=== PATIENT | female | born 1985 | race Caucasian/White ===

== ENCOUNTER 2020-06-08 14:51 | Emergency (ER) | payer OTHER, SELFPAY ==
[2020-06-08 16:05] VITALS: BP 121/66; PULSE 59; RESP 20; TEMP 36.7; BMI 24.3
--- NOTE | 2020-06-08 17:39 | ED.SKABFB ---
HPI - Skin/Abscess/Foreign Bdy General Chief complaint: Skin/Abscess/Foreign Body Stated complaint: NOSE PAIN Time Seen by Provider: 06/08/20 17:18 Source: patient Mode of arrival: ambulatory History of Present Illness HPI narrative: 34-year-old female with no significant past medical history presenting to ED complaining of bump in right nostril with right-sided facial discomfort/swelling times a few days. Admits tried squeezing area at home which made it worse. Denies ear pain, throat pain or swelling, fever, chills, dental pain/procedure Related Data Previous Rx's Medication Instructions Recorded acetaminophen [Tylenol Extra 500 mg PO Q6H PRN #20 tab 06/08/20 Strength] cephalexin [Keflex] 500 mg PO Q6H 7 Days #28 cap 06/08/20 sulfamethoxazole-trimethoprim 1 tab PO BID 7 Days #14 tab 06/08/20 [Bactrim DS] Allergies Allergy/AdvReac Type Severity Reaction Status Date / Time No Known Allergies Allergy Verified 06/08/20 17:16 Review of Systems Review of Systems: Constitutional: No Weight loss, No Fever, No Chills ENT/Mouth: No Ear Pain, No Sinus Pain, No Hoarseness, No sore throat, No Swallowing Difficulty, +nasal pain Cardiovascular: No SOB Skin: + Skin Lesions, No rash Yes all other systems are reviewed and are negative [facility] Past Medical History Attestation statement: The following information was validated with the patient. Medical History (Updated 06/08/20 @ 17:39 by EVELIO Hutson) Anemia Cholecystitis Surgical History (Updated 06/08/20 @ 16:07 by Hira Morrison) H/O gastric bypass Social History Social History Smoking Status: Never smoker Use of substances other than those prescribed or required for medical reasons: Yes Substance Use Type: Marijuana Advance Directives: No Advance Directives Information Provided: No Physical Exam Vital Signs: Vital Signs: Last Vital Signs Temp 98.1 F 06/08/20 16:05 Pulse 59 06/08/20 16:05 Resp 20 06/08/20 16:05 BP 121/66 06/08/20 16:05 Body Mass Index 24.3 Const: General: cooperative and healthy appearing Orientation/consciousness: patient oriented x3 Limitations: no limitations HENMT: Other: +small hard cyst in right Nare with mild surrounding R facial swelling. No surrounding cellulitis. No fluctuance. No pointing No gingival or dental involvement Head: Yes normal to inspection Ears: hearing grossly normal bilaterally and TM's normal bilaterally Mouth: Normal oral and palatal mucosa present, lip normal, tongue normal and no drooling Teeth and gingiva: dentition normal Throat: Yes posterior oropharynx normal and Yes uvula midline Eyes: General: appearance normal, both eyes and all related structures EOM: EOMs intact bilaterally Neck: Neck: Yes normal visual inspection, Yes full ROM and Yes no lymphadenopathy Resp: Effort & Inspection: normal respiratory effort Neuro: General: patient oriented x3 Gait exam (Neuro): Normal gait present Extrem: General: Yes normal to inspection MDM - Skin/Abscess/Foreign Bdy MDM Narrative Medical decision making narrative: On exam VSS, NAD/well-appearing, concern for early abscess in Nare vs cyst vs follicle infection No appreciable abscess at this time that would require I&D Discharge Plan Discharge Clinical Impression: Cyst Patient Disposition: Home, Self-Care Instructions: Cyst (ED) Additional Instructions: You have an early abscess/ingrown hair,/or cyst to your nose Bactrim and Keflex are antibiotics, take as prescribed Apply ice to surrounding facial swelling, however apply heat directly to area Take Tylenol and Motrin around the clock at home for pain/swelling Follow up with her doctor, he should be re-evaluated in 2 days, area begins to grow, you have fever, or turns red return to the ED Prescriptions: New cephalexin [Keflex] 500 mg capsule 500 mg PO Q6H 7 Days Qty: 28 RF: 0 sulfamethoxazole-trimethoprim [Bactrim DS] 800-160 mg tablet 1 tab PO BID 7 Days Qty: 14 RF: 0 acetaminophen [Tylenol Extra Strength] 500 mg tablet 500 mg PO Q6H PRN (Reason: pain or fever) Qty: 20 RF: 0 Referrals: Physician,None [Primary Care Provider] - 2 days (Your doctor)
[2020-06-08] MEDS: cephALEXin 500 MG CAPSULE PO (18:12)
[2020-06-08] MEDS: Ketorolac Tromethamine 15 MG/ML VIAL IM (18:12)
== END 2020-06-08 19:03 | disposition home or self-care (01) ==
PROVIDERS: Emergency Provider Emergency Medicine
DX: J34.1 Cyst and mucocele of nose and nasal sinus (principal)
CPT/HCPCS: 96372; 99284; J1885

== ENCOUNTER 2021-12-29 09:55 | Emergency (ER) | payer OTHER, SELFPAY ==
[2021-12-29 10:30] VITALS: BP 99/65; PULSE 54; RESP 16; TEMP 36.7; O2SAT 99; BMI 21.2
--- NOTE | 2021-12-29 11:57 | ED.SKABFB ---
HPI - Skin/Abscess/Foreign Bdy General Chief complaint: Skin/Abscess/Foreign Body Stated complaint: bumps on hands Time Seen by Provider: 12/29/21 11:41 Source: patient Mode of arrival: ambulatory Limitations: no limitations History of Present Illness complaint: rash Onset (ago): day(s) Location: L hand, R hand, L foot and R foot Severity: moderate Quality: constant and pruritic Pain Consistency: constant Relieving factors: none Exacerbating factors: none Context: none Associated symptoms: denies other symptoms Treatments prior to arrival: none Related Data Previous Rx's Medication Instructions Recorded clotrimazole 1 % topical ointment 1 appl TOPICAL BID #56.7 g 12/29/21 permethrin 5 % topical cream 1 appl TOPICAL Q14D 3 Days #60 g 12/29/21 Allergies Allergy/AdvReac Type Severity Reaction Status Date / Time No Known Allergies Allergy Verified 11/23/20 15:48 Review of Systems Review of Systems: Constitutional : No Fever, No Chills , no body aches, no recent illness Head/Face: No facial swelling, No facial redness ENT/Mouth : No oral/throat swelling, No Hoarseness, No Swallowing Difficulty Eyes: No Eye Pain, No Swelling, No Redness Cardiovascular : No Chest Pain, No SOB, No palpitations Respiratory : No Cough, No Sputum, No Wheezing, No Smoke Exposure, No Dyspnea Gastrointestinal : No Nausea, No Vomiting, No Diarrhea, No abdominal Pain Genitourinary : No Dysuria, No Urinary Frequency, No Hematuria Musculoskeletal : No joint pain, No Myalgias, No Joint Swelling Skin : No Skin Lesions, positive rash Neuro : No Weakness, No Numbness, No Headache, No dizziness, No tingling Psych : No Anxiety/Panic, No Depression Heme/Lymph: No Bruising, No Lymphadenopathy Endocrine : No Polyuria, No Polydipsia Denies changes in lotions or detergents. Denies new medications or any changes in medications. Denies drainage from rash. Denies any recent sick contacts or recent travel. Yes all other systems are reviewed and are negative PMFSH Past Medical History Attestation statement: The following information was validated with the patient. Medical History Anemia Cholecystitis Transaminitis Surgical History H/O gastric bypass Hx of cholecystectomy Family History Family History Father No problems noted. Mother No problems noted. Social History Social History Alcohol intake: current Alcohol intake frequency: holidays/special occasions only Alcohol type: beer, wine and hard liquor Substance Use Type: Marijuana Advance Directives: No Advance Directives Information Provided: No Physical Exam Vital Signs: Vital Signs: Last Vital Signs Temp 98.1 F 12/29/21 10:30 Pulse 54 12/29/21 10:30 Resp 16 12/29/21 10:30 BP 99/65 12/29/21 10:30 Pulse Ox 99 12/29/21 10:30 BMI result Body Mass Index 21.2 vital signs have been reviewed as normal and appeared to be correct. Blood pressure normal Heart rate normal. Respiration rate normal. Temperature normal. Oxygen saturation normal. Appearance: Alert. Oriented X3. No acute distress. Head: Normal external exam. Normocephalic. Atraumatic. Eyes: PERRLA. EOMI. Conjunctiva and sclera normal. Eyelids normal. ENT: Pharynx normal. Uvula midline. Moist mucous membranes. Neck: Normal inspection. Neck supple. FROM. CVS: Normal heart rate and rhythm. Respiratory: No respiratory distress. Painless inspiration. Skin: Skin warm and dry. Normal skin color. Normal skin turgor. patient noted to be very pruritic at the soles/web spaces of the feet and palmar aspect and was spaces of the hands consistent with scabies. Patient with Interdigital moist scaling / erythema to right foot 4/5 space consistent with tinea pedis. No additional rashes/lesions/lacerations noted. Extremities: Extremities exhibit normal range of motion. Extremities nontender. Neuro: Oriented X 3. No motor deficit. No sensory deficit. Reflexes normal. Normal steady gait. No focal neuro deficits noted. Vascular: + radial pulses/+ 2 distal pedal pulses/+2 dorsalis pedis b/l. Normal cap refill. No cyanosis noted to upper extremity nails and lower extremity toes nails. Course Course Course Narrative: patient most likely scabies infection. She also appears to have tinea pedis to right foot between the 4th and 5th digit this is a different rash. Will DC home with scabies treatment and tinea pedis treatment and instructions return if any new or worsening symptoms follow up with primary care provider. Patient understands agrees with this plan. MDM - Skin/Abscess/Foreign Bdy Medical Records Attestation: I reviewed the patient's medical records. Discharge Plan Discharge Clinical Impression: Scabies, Tinea pedis Patient Disposition: Home, Self-Care Instructions: Athlete's Foot (ED), Scabies (ED) Prescriptions: New permethrin 5 % cream 1 appl topical Q14D 3 Days Qty: 60 2RF Rx Instructions: apply second treatment 14 days after first treatment if live lice remain clotrimazole 1 % ointment 1 appl topical BID Qty: 56.7 2RF Referrals: Gita Barbour MD [Primary Care Provider] - 2 days
== END 2021-12-29 12:31 | disposition home or self-care (01) ==
PROVIDERS: Emergency Provider Emergency Medicine; PCP Internal Medicine
DX: B86 Scabies (principal); B35.3 Tinea pedis
CPT/HCPCS: 99283

== ENCOUNTER 2022-05-18 08:57 | Outpatient (REF) | payer OTHER, SELFPAY ==
[2022-05-18 09:18] LABS: MANUAL DIFF FLAG NO
[2022-05-18 10:47] LABS: Basophils Percent Auto 0.4 % (0-2); Eosinophils Absolute Auto 0.2 X10*3/uL (0.0-0.4); Eosinophils Percent Auto 2.3 % (0-4); Hematocrit 41.4 % (37.0-47.0); Hemoglobin 13.8 g/dl (12.0-16.0); Imm Gran Abs Auto 0.02 X10*3/uL (0.00-0.03); Imm Gran Pct Auto 0.3 % (0.0-0.4); Lymphocytes Absolute Auto 1.5 X10*3/uL (1.2-4.9); Lymphocytes Percent Auto 19.6 % (20-40); Mean Corpuscular HGB Conc 33.3 g/dl (31.0-35.0); Mean Corpuscular Hemoglobin 31.7 pg (27.0-33.0); Mean Corpuscular Volume 95.2 fL (80.0-98.0); Mean Platelet Volume 10.1 fL (9.4-12.3); Monocytes Absolute Auto 0.5 X10*3/uL (0.1-1.2); Monocytes Percent Auto 5.8 % (2-11); Neutrophils Absolute Auto 5.6 x10*3/uL (2.0-8.3); Neutrophils Percent Auto 71.6 % (45-73); Platelet Count 268 X10*3/uL (160-400); Red Blood Count 4.35 X10*6/uL (4.20-5.50); Red Cell Distribution Width 11.7 % (11.0-16.0); White Blood Count 7.8 X10*3/uL (4.8-10.8)
[2022-05-18 11:23] LABS: Alanine Aminotransferase 44 U/L (0-31); Albumin Level 4.8 g/dL (3.5-5.0); Alkaline Phosphatase 114 U/L (39-117); Anion Gap 16 (12-20); Aspartate Amino Transferase 34 U/L (5-31); Blood Urea Nitrogen 7 mg/dL (9-16); Calcium 9.6 mg/dL (8.4-10.2); Carbon Dioxide 30 mmol/L (22-29); Chloride 101 mmol/L (96-108); Cholesterol 162 mg/dL; Estimated Glomerular Filt Rate > 60; Glucose Fasting 84 mg/dL (60-99); HDL Cholesterol 61 mg/dL; LDL Cholesterol Calculated 86 mg/dl; Potassium 4.5 mmol/L (3.3-5.1); Sodium 142 mmol/L (135-145); Total Protein 7.8 g/dL (6.5-8.0); Triglycerides 79 mg/dL
[2022-05-18 11:45] LABS: TSH reflex Free T4 0.79 uIU/mL (0.32-4.0); Vitamin D 25-OH Total 32.5 ng/mL (>30)
[2022-05-18 12:15] LABS: Folate 14.8 ng/mL (> or = 4.0); Vitamin B12 502 pg/mL (200-900)
== END 2022-05-18 08:58 | disposition home or self-care (01) ==
LOC: HO.LAB 08:57
PROVIDERS: PCP Internal Medicine; Visit Provider Nurse Practitioner Family
DX: Z00.00 Encounter for general adult medical examination without abnormal findings (principal); Z13.220 Encounter for screening for lipoid disorders; Z13.29 Encounter for screening for other suspected endocrine disorder
CPT/HCPCS: 36415; 80053; 80061; 82306; 82607; 82746; 84443; 85025

== ENCOUNTER 2022-05-20 10:26 | Outpatient (REF) | payer OTHER, SELFPAY ==
[2022-05-22 04:35] LABS: HBS Num1 0.76 mIU/mL (0-7.99); HBc Num1 0.08 S/CO (0.00-0.79); HBsAGNum1 0.19 S/CO (0.00-0.99); Hepatitis B Core Antibody Nonreactive (Nonreactive); Hepatitis B Surface Antigen Negative (Negative); ~HepC Num1 0.14 S/CO (0.00-0.79); ~Hepatitis B Surface Antibody NONREACTIVE (Nonreactive); ~Hepatitis C Antibody Nonreactive (Nonreactive)
[2022-05-24 04:04] LABS: ~Hepatitis A Antibody IgM Nonreactive (Nonreactive)
== END 2022-05-20 10:27 | disposition home or self-care (01) ==
LOC: HO.LAB 10:26
PROVIDERS: PCP Internal Medicine; Visit Provider Nurse Practitioner Family
DX: R74.01 Elevation of levels of liver transaminase levels (principal)
CPT/HCPCS: 36415; 86704; 86706; 86709; 86803; 87340

== ENCOUNTER 2022-05-23 10:20 | Outpatient (REF) | payer OTHER, SELFPAY ==
[2022-05-23 19:05] LABS: CT PCR NOT DETECTED (Not Detect.); NG PCR NOT DETECTED (Not Detect.)
[2022-05-24 09:15] LABS: BV Int Neg Control Negative (Negative); BV Int Pos Control Positive (Positive)
== END 2022-05-23 10:21 | disposition home or self-care (01) ==
LOC: HO.LNP 10:20
PROVIDERS: Visit Provider Advanced Practice Midwife
DX: Z30.431 Encounter for routine checking of intrauterine contraceptive device (principal)
CPT/HCPCS: 87480; 87491; 87510; 87591; 87660; 99202

== ENCOUNTER 2022-10-12 09:11 | Emergency (ER) | payer OTHER, SELFPAY ==
[2022-10-12 09:19] VITALS: BP 115/41; PULSE 75; RESP 18; TEMP 36.6; O2SAT 98; BMI 22.1
--- NOTE | 2022-10-12 09:41 | ED_ITS ---
HPI - Eye Problem General Chief complaint: Eye Problems Stated complaint: L eye swelling Time Seen by Provider: 10/12/22 09:27 Source: patient Mode of arrival: ambulatory Limitations: no limitations History of Present Illness HPI Narrative: 36 yo female presents to the ER for evaluation of left upper eyelid swelling and pain for the last 2 days. She states it started as a soreness in her left upper eye lid 2 days ago. No injuries. She reports yesterday she noticed some swelling and redness in her upper eyelid and today it was worse. She had some drainage overnight. No vision changes. No FB sensation. MD chief complaint: eye pain and eye redness Onset (ago): day(s) Onset description: gradual Duration: constant Location: left eye Eye Symptoms: redness, pain and discharge Place: home Mechanism: none Severity: moderate If Pain, Quality: aching Associated symptoms: none Treatments Prior to Arrival: OTC eye drops Related Data Previous Rx's Medication Instructions Recorded ibuprofen 600 mg tablet 600 mg PO Q8H PRN fever or pain 10/12/22 #14 tabs sulfacetamide sodium 10 % eye drops 1 drp ophthalmic-Left Q3H #15 mL 10/12/22 Allergies Allergy/AdvReac Type Severity Reaction Status Date / Time Seasonal Allergies Allergy Mild congestion Verified 05/23/22 09:43 Review of Systems Review of Systems: Yes all other systems are reviewed and are negative [facility] Past Medical History Medical History Anemia Cholecystitis Transaminitis Surgical History H/O gastric bypass Hx of cholecystectomy Family History Family History (Updated 05/23/22 @ 09:45 by GAEL Snyder) Father No problems noted. Mother No problems noted. Maternal Aunt Breast cancer Social History Social History Housing: House (town house) Alcohol intake: current Alcohol intake frequency: holidays/special occasions only Alcohol type: beer, wine and hard liquor Patient Tobacco Use Status: Never used Tobacco e-Cigarette/Vaping Use: Never Used Substance Use Type: Marijuana Advance Directives: No Advance Directives Information Provided: No service: No Current occupational status: employed Cognitive needs: No Hearing needs: No Vision needs: Yes (uses glasses for driving) Physical Exam Vital Signs: Vital Signs: Last Vital Signs Temp 98 F 10/12/22 09:19 Pulse 75 10/12/22 09:19 Resp 18 10/12/22 09:19 BP 115/41 L 10/12/22 09:19 Pulse Ox 98 10/12/22 09:19 BMI result Body Mass Index 22.1 Appearance: Alert. Oriented X3. No acute distress. HEENT: left upper eyelid with mild generalized swelling and redness, no visible external hordeolum. mild injection of the left sclera. no drainage. PERRLA. EOMI. unable to invert the left upper lid due to discomfort CVS: Normal heart rate and rhythm. Pulses normal. Respiratory: No respiratory distress. Skin: Skin warm and dry. Normal skin color. Normal skin turgor. No rashes. Extremities: normal inspection x4 Neuro: Oriented X 3., grossly normal, nonfocal Medical Decision Making Medical Decision Making MDM Narrative: 36 yo female presenting to the ER for evaluation of left upper eye lid redness and swelling x2 days, no trauma, FB sensation or vision changes. Exam c/w evolving internal hordeolum. Will treat with warm compresses and topical abx given her new onset drainage. stable for d/c home. Differential Diagnosis Differential Diagnoses: The differential diagnosis associated with the presentation includes internal hordeolum, external horedolum, FB in the eye, iritis, corneal abrasion, trauma, less likely periorbital cellulitis External Record Review External record reviewed: Prior outpatient labs Prescription Management I considered prescription management with: Antibiotic (topical) Critical Care Time Critical Care Time Critical Care Time: No Discharge Plan Discharge Clinical Impression: Internal hordeolum of left eye Patient Disposition: Home, Self-Care Instructions: Tanna (ED) Additional Instructions: Use warm compresses to your left eye several times per day Use the prescribed antibiotic as directed for the next 5 days Follow up with the eye doctor as needed If you develop new or worsening symptoms call 911 or come back to the ER for further evaluation. Prescriptions: New sulfacetamide sodium 10 % drops 1 drp ophthalmic-Left Q3H Qty: 15 0RF ibuprofen 600 mg tablet 600 mg PO Q8H PRN (Reason: fever or pain) Qty: 14 0RF Referrals: Arvin Fraire [Physician] - (left internal hordeolum)
== END 2022-10-12 10:31 | disposition home or self-care (01) ==
PROVIDERS: Emergency Provider Emergency Medicine; PCP Internal Medicine
DX: H00.024 Hordeolum internum left upper eyelid (principal)
CPT/HCPCS: 99282; 99283

== ENCOUNTER 2022-10-21 15:26 | Emergency (ER) | payer OTHER, SELFPAY ==
[2022-10-21 15:41] VITALS: BP 97/61; PULSE 84; RESP 18; TEMP 36.8; O2SAT 97; BMI 22.1
--- NOTE | 2022-10-21 15:42 | ED_ITS ---
HPI - Eye Problem General Chief complaint: Eye Problems Stated complaint: stye on eye Time Seen by Provider: 10/21/22 15:43 Source: patient Mode of arrival: ambulatory History of Present Illness HPI Narrative: 36-year-old female with past medical history external hordeolum presenting to ED complaining of persistent left eyelid swelling, redness, and pain. Patient was seen and treated in our ED in 10/12 for similar symptoms using antibiotic drops without relief. Denies area worsening, states will just not go away. Patient wears glasses, no contacts. Denies injury, vision change chest loss, fever MD chief complaint: eye pain and eye redness Related Data Previous Rx's Medication Instructions Recorded ibuprofen 600 mg tablet 600 mg PO Q8H PRN fever or pain 10/12/22 #14 tabs sulfacetamide sodium 10 % eye drops 1 drp ophthalmic-Left Q3H #15 mL 10/12/22 erythromycin 5 mg/gram (0.5 %) eye 0.5 inch ophthalmic (eye) TID 7 10/21/22 ointment days #3.5 grams Allergies Allergy/AdvReac Type Severity Reaction Status Date / Time Seasonal Allergies Allergy Mild congestion Verified 05/23/22 09:43 Review of Systems Review of Systems: Constitutional: No Fever, No Chills, No Fatigue, No Malaise ENT/Mouth: No Ear Pain, No Nasal Congestion, No sore throat, No Rhinorrhea, No Swallowing Difficulty Eyes: + Eye Pain, + Swelling, +Redness, No Foreign Body, No Discharge, No Vision Changes Cardiovascular: No Chest Pain, No SOB Respiratory: No Cough, No Sputum, No Dyspnea Gastrointestinal: No Nausea, No Vomiting, No Diarrhea, No Constipation, No Abdominal pain Musculoskeletal: No joint pain, No Myalgias, No Joint Swelling Skin: No Skin Lesions, No rash Neuro: No Weakness, No Headache Yes all other systems are reviewed and are negative Constitutional: Constitutional: Reports as per [facility] Past Medical History Attestation statement: The following information was validated with the patient. Medical History Anemia Cholecystitis Transaminitis Surgical History H/O gastric bypass Hx of cholecystectomy Family History Family History Father No problems noted. Mother No problems noted. Maternal Aunt Breast cancer Social History Social History Housing: House (town house) Alcohol intake: current Alcohol intake frequency: holidays/special occasions only Alcohol type: beer, wine and hard liquor Patient Tobacco Use Status: Never used Tobacco e-Cigarette/Vaping Use: Never Used Substance Use Type: Marijuana service: No Current occupational status: employed Cognitive needs: No Hearing needs: No Vision needs: Yes (uses glasses for driving) Physical Exam Vital Signs: Vital Signs: Last Vital Signs Temp 98.2 F 10/21/22 15:41 Pulse 84 10/21/22 15:41 Resp 18 10/21/22 15:41 BP 97/61 10/21/22 15:41 Pulse Ox 97 10/21/22 15:41 O2 Del Method Room Air 10/21/22 15:41 BMI result Body Mass Index 22.1 Const: General: cooperative, healthy appearing and no acute distress Orien tation/consciousness: patient oriented x3 Limitations: no limitations HEENT: Head: Yes normal to inspection and Yes atraumatic Ears: hearing grossly normal bilaterally General nose exam: Normal external nose present Face and sinus: Yes normal facial exam Eyes: Other: + erythematous left upper eyelid external hordeolum noted with tenderness. No fluctuance. No periorbital cellulitis. EOMs intact without pain. General: appearance normal, both eyes and all related structures Pupils: Equal, round and reactive pupils present EOM: EOMs intact bilaterally Neck: Neck: Yes normal visual inspection and Yes no meningeal signs Resp: Effort & Inspection: normal respiratory effort and no respiratory distress Cardio: Rate: regular rate Heart sounds: S1 normal heart sound present and S2 normal heart sound present Skin: Rashes: no rashes Wounds: no wounds Neuro: General: patient oriented x3, tone normal and no meningeal signs Importer Or Exporter nial nerves: Yes Equal, round and reactive pupils present Gait exam (Neuro): Normal gait present Extrem: General: Yes normal to inspection Course Course Course Narrative: Results discussed with patient including worrisome signs and symptoms and strict return precautions, and when to return to the emergency department. They verbalized understanding and feel safe for discharge at this time. Medical Decision Making Medical Decision Making MDM Narrative: 36-year-old female with past medical history external hordeolum presenting to ED complaining of persistent left eyelid swelling, redness, and pain. On exam vital signs stable, NAD, nontoxic, physical exam as above. Encouraged continuation of warm compresses. No evidence of cellulitis. Low suspicion for periorbital/orbital cellulitis. Will try erythromycin ointment, and ophthalmology follow-up. Please refer to course for remaining clinical decision making, interpretation of labs/imaging results, and discussions with consultants and/or family members. Differential Diagnosis Differential Diagnoses: The differential diagnosis associated with the presentation includes As above Lab Data [facility] Lab Attestation statement: I reviewed the patient's lab results. Radiology Impression Discussion of test interpretation with radiology: I have reviewed the radiologist's reading. External Record Review External record reviewed: Inpatient record, Office record, Outpatient record, Prior outpatient labs, Prior outpatient radiology, Primary care record and Outside ED record Discharge Plan Discharge Clinical Impression: External hordeolum Patient Disposition: Home, Self-Care Instructions: Stye (ED) Additional Instructions: You have a stye. Continue to apply warm compresses and massage area at home Erythromycin is an antibiotic ointment, use as prescribed If area begins to worsen, grow, vision loss/change, fever chills return to the ED please call the eye doctor for follow up Prescriptions: New erythromycin 5 mg/gram (0.5 %) ointment 0.5 inch ophthalmic (eye) TID 7 Days Qty: 3.5 0RF No Action sulfacetamide sodium 10 % drops 1 drp ophthalmic-Left Q3H Qty: 15 0RF ibuprofen 600 mg tablet 600 mg PO Q8H PRN (Reason: fever or pain) Qty: 14 0RF Referrals: Arvin Fraire [Physician] - Gita Barbour MD [Primary Care Provider] -
== END 2022-10-21 16:01 | disposition home or self-care (01) ==
LOC: HO.ED 15:52
PROVIDERS: Emergency Provider Emergency Medicine; PCP Internal Medicine
DX: H00.014 Hordeolum externum left upper eyelid (principal); H57.12 Ocular pain, left eye
CPT/HCPCS: 99282; 99283

== ENCOUNTER 2023-04-13 09:18 | Emergency (ER) | payer OTHER, SELFPAY ==
--- NOTE | ~2023-04-13 | XR_ITS ---
EXAMINATION: XR FOOT, RIGHT CLINICAL INFORMATION: Pain COMPARISON: None available. TECHNIQUE: AP, lateral, and oblique views of the right foot. FINDINGS: No acute fracture or dislocation. XR/XR foot RT 2V IMPRESSION: No acute fracture or dislocation of the right foot.
[2023-04-13 09:40] VITALS: BP 100/61; PULSE 63; RESP 18; TEMP 36.2; O2SAT 99; BMI 23.6
--- NOTE | 2023-04-13 11:42 | ED_ITS ---
HPI - General Adult General Chief complaint: Extremity Injury, Lower Stated complaint: R broken pinky toe? Time Seen by Provider: 04/13/23 11:03 Source: patient Mode of arrival: ambulatory Limitations: no limitations History of Present Illness HPI narrative: 37-year-old female presents to ED for right pinky pain after hitting foot record of bed last night. Patient denies any other trauma. Patient states she has been walking on the foot since incident. Patient denies any other complaints Related Data Previous Rx's Medication Instructions Recorded ibuprofen 600 mg tablet 600 mg PO Q8H PRN fever or pain 10/12/22 #14 tabs sulfacetamide sodium 10 % eye drops 1 drp ophthalmic-Left Q3H #15 mL 10/12/22 erythromycin 5 mg/gram (0.5 %) eye 0.5 inch ophthalmic (eye) TID 7 10/21/22 ointment days #3.5 grams acetaminophen 325 mg capsule 325 mg PO QID PRN pain 7 days #28 04/13/23 (Tylenol) caps Allergies Allergy/AdvReac Type Severity Reaction Status Date / Time Seasonal Allergies Allergy Mild congestion Verified 05/23/22 09:43 Review of Systems 2 Review of Systems: Right pinky pain. Yes all other systems are reviewed and are negative [facility] Past Medical History Medical History Anemia Cholecystitis Transaminitis Surgical History H/O gastric bypass Hx of cholecystectomy Family History Family History Father No problems noted. Mother No problems noted. Maternal Aunt Breast cancer Social History Social History Housing: House (town house) Alcohol intake: current Alcohol intake frequency: holidays/special occasions only Alcohol type: beer, wine and hard liquor Patient Tobacco Use Status: Never used Tobacco e-Cigarette/Vaping Use: Never Used Substance Use Type: Marijuana Advance Directives: No service: No Current occupational status: employed Cognitive needs: No Hearing needs: No Vision needs: Yes (uses glasses for driving) Physical Exam ED Vital Signs: Vital Signs - 24 hr 04/13/23 09:40 Temperature 97.1 F Pulse Rate 63 Respiratory Rate 18 Blood Pressure 100/61 Pulse Oximetry 99 Oxygen Delivery Method Room Air BMI result Body Mass Index 23.6 Const General: cooperative, healthy appearing, comfortable, no acute distress, well developed, alert, awake and Physically active Orientation/consciousness: oriented to person, oriented to place, oriented to time and patient oriented x3 [facility] Head: Yes normal to inspection, Yes No palpable skull fracture present, Yes normocephalic and Yes atraumatic Eyes General: appearance normal, both eyes and all related structures Neck Neck: Yes normal visual inspection, Yes full ROM, Yes no lymphadenopathy, Yes no meningeal signs, Yes trachea midline, Yes supple, No anterior neck swelling and No tender Chest Chest palpation & inspection: normal inspection of the chest and normal palpation of entire chest wall Resp Effort & Inspection: normal respiratory effort and able to speak in complete sentences Auscultation: clear to auscultation bilaterally Cardio Jugular venous distension: no JVD Heart sounds: S1 normal heart sound present and S2 normal heart sound present GI Inspection: Yes normal to inspection and No abdominal wall ecchymosis Palpation (GI): Soft to palpation, not firm, nontender, no guarding and not rigid General: No CVA tenderness and Yes no CVA tenderness Back/Spine/Pelvis Back: no CVA tenderness, No CVA tenderness and No back tenderness Skin General skin exam: no rashes or lesions noted and elasticity normal Neuro General: oriented to person, oriented to place, oriented to time, patient oriented x3, gait normal, tone normal, moves all extremities, Normal light touch and pain sensation, no meningeal signs, no focal motor deficits, CN's II-XI intact bilaterally and normal sensation to monofilament Extrem General: Yes normal to inspection and Yes full ROM Ankle/foot/toe images: 2 1. positive for ecchymosis. Negative for crepitus, deformity, erythema, hardness, or coldness. Motor/ neuro/vascular exam of extremity intact Psych Appearance: grossly normal, well kempt and not disheveled Medical Decision Making Medical Decision Making MDM Narrative: 37-year-old female presents to ED for right pinky toe pain after hitting corner of bed with right foot. Patient denies any other trauma. Patient had normal gait and normal ambulation. Patient denies any other complaints. Patient x-ray normal. Patient is safe for discharge. Differential Diagnosis Differential Diagnoses: The differential diagnosis associated with the presentation includes ( Fracture of foot, fracture of toe, dislocation, contusion, cellulitis, compartment syndrome) Admission/Observation Consideration of admission/observation: Escalation of care including admission/observation considered Independent Interpretation I performed an independent interpretation of an: Plain X-Ray Radiology Impression Discussion of test interpretation with radiology: I have reviewed the radiologist's reading. External Record Review External record reviewed: Other (Prior ED visist) Prescription Management I considered prescription management with: Pain Medication Discharge Plan Discharge Clinical Impression: Contusion Patient Disposition: Home, Self-Care Instructions: Bone Bruise (ED) Additional Instructions: Your x-ray came back negative for any fractures. Please follow-up with the primary care provider. Return to the ED for any increased swelling, bluish discoloration, redness, red streaks, numbness/tingling, inability to walk, fever, chills, skin tightness, or any other concerning symptoms. Prescriptions: New acetaminophen [Tylenol] 325 mg capsule 325 mg PO QID PRN (Reason: pain) 7 Days Qty: 28 0RF No Action sulfacetamide sodium 10 % drops 1 drp ophthalmic-Left Q3H Qty: 15 0RF ibuprofen 600 mg tablet 600 mg PO Q8H PRN (Reason: fever or pain) Qty: 14 0RF erythromycin 5 mg/gram (0.5 %) ointment 0.5 inch ophthalmic (eye) TID 7 Days Qty: 3.5 0RF Stand Alone Forms: Work/School Release Interventions: ED Discharge Assessment Last Done: 04/13/23 12:04 Discharge Date/Time: 04/13/23 12:05 Print Language: Finnish
== END 2023-04-13 12:05 | disposition home or self-care (01) ==
PROVIDERS: Emergency Provider Emergency Medicine Emergency Medical Services; PCP Internal Medicine
DX: S90.121A Contusion of right lesser toe(s) without damage to nail, initial encounter (principal); W22.03XA Walked into furniture, initial encounter; Y93.89 Activity, other specified; Y92.013 Bedroom of single-family (private) house as the place of occurrence of the external cause; Y99.9 Unspecified external cause status
CPT/HCPCS: 73620; 99282; 99283

== ENCOUNTER 2023-05-22 08:48 | Outpatient (REF) | payer OTHER, SELFPAY ==
[2023-05-22 13:34] LABS: CT PCR NOT DETECTED (Not Detect.); NG PCR NOT DETECTED (Not Detect.)
[2023-05-23 13:40] LABS: BV Int Neg Control Negative (Negative); BV Int Pos Control Positive (Positive)
[2023-05-25 21:13] LABS: HPV mRNA E6/E7 rflx Not Detected (Not Detected)
== END 2023-05-22 08:49 | disposition home or self-care (01) ==
LOC: HO.LNP 08:48
PROVIDERS: Visit Provider Advanced Practice Midwife
DX: Z30.431 Encounter for routine checking of intrauterine contraceptive device (principal); Z12.4 Encounter for screening for malignant neoplasm of cervix; Z11.3 Encounter for screening for infections with a predominantly sexual mode of transmission
CPT/HCPCS: 0353U; 87480; 87510; 87624; 87660; 88142; 99395

== ENCOUNTER 2023-05-22 08:48 | Outpatient (AMB) | payer OTHER, SELFPAY ==
[2023-05-22 09:04] VITALS: BP 122/80; BMI 24.1
--- NOTE | 2023-05-22 09:04 | MHC.OFFVIS ---
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 She likes it very much and has had it since of couple months after her last child she is using it for for contraception and she does not want to get at this stage her life. She has 3 children the oldest is 18 and the youngest is 5. 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 She is healthy and has no health concerns. She only gets light is staining about once a month towards the beginning of the month that is probably reminiscent of her period. Sometimes she does not even need to wear something for protection. She travel to [place] to visit her mother this summer and state for month with the children and is planning a trip to either [place] or [facility] this summer with the children to visit family. She speaks Tajik with them, and her speaks Urdu with them. [facility] Medical History (Updated 05/22/23 @ 09:48 by Laura Wynne CNM) Transaminitis Cholecystitis Anemia Surgical History (Updated 05/22/23 @ 09:11 by GAEL Snyder) Hx of cosmetic surgery Hx of cholecystectomy H/O gastric bypass Family History Father No problems noted. Mother No problems noted. Maternal Aunt Breast cancer Social History Housing: House (town house) Alcohol intake: current Alcohol intake frequency: holidays/special occasions only Alcohol type: beer, wine and hard liquor Patient Tobacco Use Status: Never used Tobacco e-Cigarette/Vaping Use: Never Used Substance Use Type: Marijuana service: No Current occupational status: employed Cognitive needs: No Hearing needs: No Vision needs: Yes (uses glasses for driving) Female Reproductive History Menstrual Age of Menarche: 11 Duration of menses: 3-5 days control method: progestin IUCD Total pregnancies: 5 Full term: 3 Number of Living Children: 3 Ab induced: 1 Ab spontaneous: 1 Date of last pap smear: 10/03/18 (negative) Physical Exam Vital Signs: Last Vital Signs BP 122/80 05/22/23 09:04 BMI result Body Mass Index 24.1 Const General: healthy appearing, comfortable, no acute distress, well developed and alert Nutritional Appearance: average body habitus Orientation/consciousness: patient oriented x3 Limitations: no limitations HEENT Head: Yes normocephalic Neck Neck: Yes normal visual inspection Chest Chest palpation & inspection: normal inspection of the chest Breast/axilla inspection: normal inspection of the breasts and normal inspection of the axillae Breast/axilla palpation: normal palpation of the breasts and normal palpation of the axillae Resp Effort & Inspection: normal respiratory effort GI Inspection: Yes normal to inspection, No Abdominal wall edema and No distended Palpation (GI): Soft to palpation and nontender Other: Vagina pink moist cervix multiparous with Mirena strings and scant whitish in clear mucus. Cervix mid position mobile nontender uterus midposition to anteverted mobile and nontender adnexa not enlarged good tone with Kegel. General: Yes bladder normal to palpation External Female Exam: normal external appearance and normal appearance of the urethra Speculum Exam - Vagina: normal appearance of the vagina, normal palpation and normal vaginal discharge Speculum Exam - Cervix: normal appearance of the cervix, normal palpation and nontender Bimanual exam- vagina & uterus: normal bimanual exam, normal palpation, uterine size normal, bladder normal to palpation, consistency normal, normal palpation, uterine mobility normal, uterine shape normal, No Cervical tenderness present, non-tender and no cervical motion tenderness Bimanual Exam- Adnexa, other: normal adnexae, no masses, normal and No adnexal tenderness Neuro General: patient oriented x3 Assessment & Plan Assessment & Plan (1) Screen for sexually transmitted diseases: Code(s): Z11.3 - Encounter for screening for infections with a predominantly sexual mode of transmission (2) Encounter for routine checking of intrauterine contraceptive device (IUD): Comment: Was placed approximately 10/15. Discussed new recommendations patient desires replacement by 5 years as does not desire unplanned will schedule for early 2023 with her very light menses Code(s): Z30.431 - Encounter for routine checking of intrauterine contraceptive device (3) Cervical cancer screening: Comment: Denies history of abnormals last Pap negative , early 2018. Pap repeated 05/22/2023. Code(s): Z12.4 - Encounter for screening for malignant neoplasm of cervix (4) Presence of 52 mg levonorgestrel-releasing intrauterine device (IUD): Code(s): Z97.5 - Presence of (intrauterine) contraceptive device Plan -----Discussed in this visit the following: healthy balanced diet, regular and consistent exercise, getting recommended health screens, doing the best she can for her particular health concerns, kegel exercises, pap smear screening and followup recommendations, mammography screening and SBE, normal changes in cycles in her life stage--- .Reviewed how the Mirena works and its affect on menstrual cycles and menses and the other common changes that women sometimes notice on mood weight another subtle cyclic changes. Reviewed that 1 of the reasons we insert the Mirena at the beginning of the menses is because of the typical physiologic changes that happen with menses that allow for the cervix to be slightly softened and open a very tiny bit which allow for more easy insertion of the Mirena. 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 Discussed problems to watch for including any severe pain, fever, feeling of expulsion. Also discussed what to do if those occur.(call here or seek urgent care) Reviewed why we leave the strings about 3-4 centimetres long, so that they will curl around the cervix otherwise the sharper tip of the strings could be palpable and be uncomfortable. Additionally when they are cut too short it is not possible to remove the IUD in the future easily. Also discussed the initial recommendations to use the Mirena IUD for contraception for up to 5 years. Some recent studies are indicating that it can be used for longer and there are current recommendations saying it can be left for longer period of time when used for contraception, up to 8 years and it can be used for 5 years when it is being used to help control abnormal bleeding. However, many women, whose periods went away for the 1st few years of having the Mirena, have reported that around 4-1/2-5 years into its use, they have noticed return of full menses, and return of ovulatory signs and symptoms midcycle. This varies from women to woman. In addition women who have had it to help control bleeding, have had amenorrhea for very many years and sometimes have opted to leave it in longer if they are still not bleeding, when they are not concerned about contraception. I recommend the she pay attention to how the effects are acting on her own body, and cycles, and always take care to be aware of this. And if she is using it for contraception, and the consequences of conceiving would be great for her, she would be hargrove to pay attention to this, and not depend on it, if she has a return to fertility. And if she desires replacement, she should return for replacement at the appropriate time. Coding Level of Care Code Est Pt Prev Care [id number]([id number]) Diagnoses Screen for sexually transmitted diseases Z11.3 Encounter for routine checking of intrauterine contraceptive device (IUD) Z30.431 Cervical cancer screening Z12.4 Presence of 52 mg levonorgestrel-releasing intrauterine device (IUD) Z97.5
== END 2023-05-22 09:46 | disposition home or self-care (01) ==
PROVIDERS: Visit Provider Advanced Practice Midwife
DX: Z01.419 Encounter for gynecological examination (general) (routine) without abnormal findings (principal)
CPT/HCPCS: 99395

== ENCOUNTER 2023-08-15 11:04 | Emergency (ER) | payer OTHER, SELFPAY ==
[2023-08-15 11:06] VITALS: BP 112/60; PULSE 72; RESP 14; TEMP 37; O2SAT 95; BMI 23.5
[2023-08-15 11:40] LABS: COVID-19 Test Negative (Negative); IDNOW Serial# 58CA691E; IDNOW Serial# 9DB6401D; Influenza A Positive (Negative); Influenza B2 Negative (Negative)
--- NOTE | 2023-08-15 11:53 | ED.URI ---
HPI - URI/Sore Throat General Chief Complaint: Upper Respiratory Symptoms Stated Complaint: Fever/Cold sweats/Nausea Time Seen by Provider: 08/15/23 11:51 Source: patient Mode of arrival: ambulatory Limitations: no limitations History of Present Illness HPI Narrative: 37 year old female presents to the ED today for evaluation of nausea, diarrhea, congestion, coughing, fevers, and sweats x5 days. TMAX of 101F. Taking over the counter meds without relief. is home sick with similar symptoms. Denies sore throat, ear pain, chest pain, SOB, dyspnea, rashes. Related Data Home Medications Medication Instructions Recorded Confirmed levonorgestrel 21 mcg/24 hours (8 intrauterine 05/22/23 05/22/23 yrs) 52 mg intrauterine device (Mirena) Previous Rx's Medication Instructions Recorded benzonatate 100 mg capsule 100 mg PO BID PRN cough #20 caps 08/15/23 Allergies Allergy/AdvReac Type Severity Reaction Status Date / Time Seasonal Allergies Allergy Mild congestion Verified 05/22/23 09:10 Review of Systems Review of Systems: Constitutional: +fever, +chills, No fatigue, night sweats, weight changes ENT/Mouth: No ear pain, hearing loss, nasal congestion, sinus pain, rhinorrhea, sore throat Eyes: No eye pain, swelling, redness, vision changes, discharge Cardio: No chest pain, palpitations, KEITH, orthopnea, peripheral edema Pulm: No SOB, +cough, No sputum, wheezing, dyspnea, hemoptysis GI: +nausea, No vomiting, hematemesis, abdominal pain, +diarrhea, No constipation, hematochezia, melena : No irregular bleeding, dysuria, frequency, urgency, hesitancy, hematuria, flank pain MSK: No back pain, neck pain, joint pain, myalgias Skin: No lesions, rashes Neuro: No weakness, numbness, paresthesias, LOC, dizziness, headache All other systems reviewed and are negative. [facility] Past Medical History Attestation statement: The following information was validated with the patient. Source: old records reviewed and nursing notes reviewed Onset Date is defined in the Problem List Problems that require an onset date and time if occurred within 24 hrs of arrival to the ED Aortic Dissection and Rupture; Neurologic impairment; Cardiopulmonary Arrest; Endotracheal Intubation; Insertion or Replacement of Mechanical Circulatory Assist Device Medical History Transaminitis Cholecystitis Anemia Surgical History Hx of cosmetic surgery Hx of cholecystectomy H/O gastric bypass Family History Family History Father No problems noted. Mother No problems noted. Maternal Aunt Breast cancer Social History Social History Housing: House ([facility]) Alcohol intake: current Alcohol intake frequency: holidays/special occasions only Alcohol type: beer, wine and hard liquor Patient Tobacco Use Status: Never used Tobacco e-Cigarette/Vaping Use: Never Used Substance Use Type: Marijuana Advance Directives: No Advance Directives Information Provided: No service: No Current occupational status: employed Cognitive needs: No Hearing needs: No Vision needs: Yes (uses glasses for driving) Physical Exam Vital Signs: Vital Signs: Last Vital Signs Temp 97 F 08/15/23 12:02 Pulse 75 08/15/23 12:02 Resp 20 08/15/23 12:02 BP 104/66 08/15/23 12:02 Pulse Ox 99 08/15/23 12:02 O2 Del Method Room Air 08/15/23 12:02 BMI result Body Mass Index 23.5 Vital signs stable, afebrile. Const: General: cooperative, healthy appearing, comfortable, no acute distress, alert and awake Orientation/consciousness: patient oriented x3 Limitations: no limitations HEENT: Other: Posterior oropharynx without erythema or edema, no tonsillar exudates, uvula midline, controlling secretions and speaking in complete sentences. Head: Yes normal to inspection, Yes normocephalic and Yes atraumatic Ears: hearing grossly normal bilaterally, external ears normal, TM's normal bilaterally, EAC's normal, mastoids normal and no periauricular adenopathy General nose exam: Normal external nose present and No nasal discharge present Face and sinus: Yes normal facial exam and Yes sinuses nontender Eyes: General: appearance normal, both eyes and all related structures Conjunctivae: conjunctivae normal Sclerae: sclerae normal Pupils: Equal, round and reactive pupils present Neck: Neck: Yes normal visual inspection, Yes full ROM and Yes no lymphadenopathy Resp: Effort & Inspection: normal respiratory effort, able to speak in complete sentences, Actively coughing and no respiratory distress Auscultation: clear to auscultation bilaterally and no wheezes Cardio: Rate: regular rate Rhythm: regular rhythm GI: Inspection: Yes normal to inspection Palpation (GI): Soft to palpation, nontender and no guarding : General: Yes no CVA tenderness Back/Spine/Pelvis: Back: no CVA tenderness Skin: General skin exam: no rashes or lesions noted Neuro: General: patient oriented x3, gait normal and moves all extremities Cranial nerves: Yes Equal, round and reactive pupils present Extrem: General: Yes normal to inspection Course Course Course Narrative: 1207-- Patient tested positive for influenza A. Discussed results with patient. Patient has remained stable throughout ED visit today. Discussed strict return precautions. All questions answered at this time. Patient is agreeable with disposition and stable for discharge. Medical Decision Making Medical Decision Making [facility] Narrative: 37 year old female presents to the ED today for evaluation of nausea, diarrhea, congestion, coughing, fevers, and sweats x5 days. Vital signs stable. Afebrile. Patient is nontoxic appearing and in NAD. B/l EASs and TMs wnl. Posterior oropharynx wnl. Lungs CTA b/l. Clinical concern for viral syndrome. 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 Plan for serology. Differential Diagnosis Differential Diagnoses: The differential diagnosis associated with the presentation includes as above. Admission/Observation Not indicated Lab Data [facility] Lab Attestation statement: I reviewed the patient's lab results. as above Labs: Lab Results 08/15/23 Range/Units 11:18 COVID-19 (MIKEL) Negative (Negative) COVID-19 Clin Com See Note Influenza Type A (ADELITA) Positive A (Negative) Influenza Type B (ADELITA) Negative (Negative) Influenza A & B Note See Note External Record Review External record reviewed: Inpatient record Prescription Management I considered prescription management with: Pain Medication and Antibiotic Social Determinants Patient?s care significantly limited by Social Determinants of Health including: Other Social Determinant of Health Critical Care Time Critical Care Time Critical Care Time: No Discharge Plan Discharge Clinical Impression: Influenza A Patient Disposition: Home, Self-Care Instructions: Influenza (ED), Flu Shot (Vaccine) for Adults (ED) Additional Instructions: Today you tested positive for influenza A. This is self-limiting and treatment is symptomatic. Tessalon perles have been sent to your pharmacy. Take these as needed for cough. Take Ibuprofen or Tylenol as needed for fevers or body aches.? Practice good hand hygiene. Drink plenty of fluids. Follow-up with your primary care provider this week. Return to the emergency department with new or worsening symptoms. In case of emergency call 911 You can purchase a pulse oximeter from your local pharmacy or grocery store, and monitor your oxygen saturation if it goes below 94% you should return to the emergency department for further evaluation. Prescriptions: New benzonatate 100 mg capsule 100 mg PO BID PRN (Reason: cough) Qty: 20 0RF No Action Mirena 21 mcg/24 hours (8 yrs) 52 mg intrauterine device intrauterine Referrals: Gita Barbour MD [Primary Care Provider] - Stand Alone Forms: Work/School Release Interventions: ED Discharge Assessment Last Done: 08/15/23 12:09 Discharge Date/Time: 08/15/23 12:10
[2023-08-15 12:02] VITALS: BP 104/66; PULSE 75; RESP 20; TEMP 36.1; O2SAT 99
== END 2023-08-15 12:10 | disposition home or self-care (01) ==
PROVIDERS: Emergency Provider Emergency Medicine; PCP Internal Medicine
DX: J10.1 Influenza due to other identified influenza virus with other respiratory manifestations (principal); R50.9 Fever, unspecified; Z11.52 Encounter for screening for COVID-19
CPT/HCPCS: 87502; 87635; 99282; 99283

== ENCOUNTER 2023-09-28 10:03 | Outpatient (REF) | payer OTHER, SELFPAY ==
[2023-09-29 05:27] LABS: CT PCR NOT DETECTED (Not Detect.); NG PCR NOT DETECTED (Not Detect.)
== END 2023-09-28 10:04 | disposition home or self-care (01) ==
LOC: HO.LAB 10:03
PROVIDERS: PCP Internal Medicine; Visit Provider Advanced Practice Midwife
DX: Z30.433 Encounter for removal and reinsertion of intrauterine contraceptive device (principal)
CPT/HCPCS: 0353U; 58300; 58301; 81025; J7298

== ENCOUNTER 2023-09-28 10:03 | Outpatient (AMB) | payer OTHER, SELFPAY ==
[2023-09-28 10:25] VITALS: BP 100/60; BMI 23.0
--- NOTE | 2023-09-28 10:25 | A.OFFVIS_ITS ---
Intake Vital Signs 09/28/23 10:25 Height 5 ft 3 in Weight 130 lb BMI 23.0 BP 100/60 Intake Visit Reasons: Mirena Replacement Director Of Field Coordination Required: No Information Interpreted: clinical only Water Chemist: Water Chemist Present Allergies Seasonal Allergies Allergy (Mild, Verified 09/28/23 10:25) congestion Medication List - Last Reconciled 09/28/23 by Laura Wynne CNM benzonatate 100 mg PO BID PRN levonorgestrel (Mirena) intrauterine Is last menstrual period known: Yes Last menstrual period: 09/01/23 Do you need a note to return to daycare/school/sports/work: No HPI Mirena Replacement HPI Details Patient is here for Mirena replacement. She normally gets her. Around the beginning of the month but she said that somebody called her to reschedule this appointment she does not have her period now what she gets for a ?period Is about 2 days of a pinky yellowish discharge.,. She also says that last week when she was having sex it was on the weekend when her was inside it hurt her in a way that it had not hurt before and it continued even to the next day so that is another reason she wants it to be checked so she was going to call for that but they called and scheduled her a different day. PENDING SALE TO [facility] Medical History Transaminitis Cholecystitis Anemia Surgical History Hx of cosmetic surgery Hx of cholecystectomy H/O gastric bypass Family History Father No problems noted. Mother No problems noted. Maternal Aunt Breast cancer Social History Housing: House Alcohol intake: current Alcohol intake frequency: holidays/special occasions only Alcohol type: beer, wine and hard liquor Patient Tobacco Use Status: Never used Tobacco e-Cigarette/Vaping Use: Never Used Substance Use Type: Marijuana service: No Current occupational status: employed Cognitive needs: No Hearing needs: No Vision needs: Yes (uses glasses for driving) Female Reproductive History Menstrual Age of Menarche: 11 Duration of menses: <3 days Date of last menstrual period: 09/01/23 control method: progestin IUCD Total pregnancies: 5 Full term: 3 Date of last pap smear: 05/22/23 (negative) History of abnormal pap smear: No Physical Exam Vital Signs: Last Vital Signs BP 100/60 09/28/23 10:25 BMI result Body Mass Index 23.0 Office Procedures IUD Insert/Removal Details Details: ---Patient is here for her IUD removal and insertion. Bimanual exam was done. Her uterus is firm, nontender, and appropriate sized, and is midposition . The cervix was swabbed with Betadine. The IUD strings were grasped with ring forceps, and as patient coughed the IUD was removed easily with 1 tug. ---The cervix was recleaned with Betadine. Tenaculum was placed on the cervix slowly to minimize cramping. The uterus was sounded slowly and gently she show a measurement of 7 cm. The IUD was removed from its package, after checking identifying information and lot dates and expiration dates and and gently inserted into the os, as per the IUD insertion procedure. The strings were then trimmed to 3-4 centimetres. The tenaculum was removed and gentle pressure applied with a swab, until any bleeding subsided from the tenaculum sites. The speculum was gently removed. The patient sat up. I Reviewed what to expect, and what indications would necessitate a call. Pt to call for fever, untoward pain or cramping. I reviewed any appropriate backup method. Pt to return for recheck as scheduled. 89309-YPD Insertion [id number] Removal Procedure code (CPT) selection complete Office Meds Mirena 21 mcg/24 hours (8 yrs) 52 mg intrauterine device Performing Provider: Laura Wynne CNM [place] [facility] [place] [facility] Administered by: Dinesh Sanchez CMA on 09/28/23 11:02 Dose Route Admin Location Dispensed Lot Number Expiration Date [facility] Division [employer] 1 device intrauterine 1 ea [id number] 11/26/25 Results AMB Test Urine AMB Test Urine Negative Last Edit by Dinesh Sanchez CMA on 09/28/23 11:43 Assessment & Plan Assessment & Plan (1) Presence of 52 mg levonorgestrel-releasing intrauterine device (IUD): Code(s): Z97.5 - Presence of (intrauterine) contraceptive device (2) Cervical cancer screening: Comment: Denies history of abnormals last Pap negative , early 2018. Pap repeated 05/22/2023= negative with negative HPV. Code(s): Z12.4 - Encounter for screening for malignant neoplasm of cervix (3) Screen for sexually transmitted diseases: Code(s): Z11.3 - Encounter for screening for infections with a predominantly sexual mode of transmission (4) Encounter for routine checking of intrauterine contraceptive device (IUD): Comment: Was placed approximately 10/15. Discussed new recommendations patient desires replacement by 5 years as does not desire unplanned will schedule for early 2023 with her very light menses Code(s): Z30.431 - Encounter for routine checking of intrauterine contraceptive device (5) Encounter for removal and reinsertion of intrauterine contraceptive device (IUD): Code(s): Z30.433 - Encounter for removal and reinsertion of intrauterine contraceptive device Plan iud inserted easily per protocol.. discussed the possiblity of an alteration to bleeding pattern as it isnt being inserted w her menses - which is a discharge she gets q month. pt may also be interested in tubl ligation. discussed befor and after. she definitely wanted ti to be replaced today. if wants to pursue that in future, she'd need tomake appt w [facility] scraper hand. reveiwed reasons to call or seek care- pain / fever/expulsion. rec no sex for at least 3 days. Orders: Orders AMB HCG Urine Test Today Z32.02 - Encounter for test, result negative AMB IUD Insertion/Removal - Practice Supplied Today Z30.433 - Encounter for removal and reinsertion of intrauterine contraceptive device CT NG by PCR Today Z01.419 - Encounter for gynecological examination (general) (routine) without abnormal findings Coding Level of Care Code Est Pt Level 3 (19800) Diagnoses Presence of 52 mg levonorgestrel-releasing intrauterine device (IUD) Z97.5 Cervical cancer screening Z12.4 Screen for sexually transmitted diseases Z11.3 Encounter for routine checking of intrauterine contraceptive device (IUD) Z30.431 Encounter for removal and reinsertion of intrauterine contraceptive device (IUD) Z30.433 CPT Codes Details - CPT: 23588-XPJ Insertion ([id number]) Details - CPT: 20624-JVZ Removal ([id number])
== END 2023-09-28 11:39 | disposition home or self-care (01) ==
LOC: HO.HWS 10:04
PROVIDERS: PCP Internal Medicine; Visit Provider Advanced Practice Midwife
DX: Z30.430 Encounter for insertion of intrauterine contraceptive device (principal); Z32.02 Encounter for pregnancy test, result negative
CPT/HCPCS: 58300; 58301

== ENCOUNTER 2023-11-08 09:56 | Outpatient (AMB) | payer OTHER, SELFPAY ==
--- NOTE | 2023-11-08 10:09 | A.OFFVIS_ITS ---
Intake Vital Signs 11/08/23 10:10 Height 5 ft 3 in Weight 134 lb BMI 23.7 BP 106/62 Intake Visit Reasons: 6 Week Mirena Check Creative Recruiter Required: No Information Interpreted: clinical only Nursing Attendant: Nursing Attendant Present Allergies Seasonal Allergies Allergy (Mild, Verified 11/08/23 10:10) congestion Medication List - Last Reconciled 11/08/23 by Laura Wynne, ANDRAM benzonatate 100 mg PO BID PRN levonorgestrel (Mirena) intrauterine Is last menstrual period known: No (IUD) Do you need a note to return to daycare/school/sports/work: No HPI 6 Week Mirena Check HPI Details Here for 6 week IUD check. The IUD is causing no problems for her whatsoever but she has been waking up very hot sweaty and feels like she has increased discharge in the morning it is not in the morning after she has had sex and I before. She feels like it is mostly all in her vaginal area. She wants to be checked for infection. [facility] Medical History Transaminitis Cholecystitis Anemia Surgical History Hx of cosmetic surgery Hx of cholecystectomy H/O gastric bypass Family History Father No problems noted. Mother No problems noted. Maternal Aunt Breast cancer Social History Housing: House Alcohol intake: current Alcohol intake frequency: holidays/special occasions only Alcohol type: beer, wine and hard liquor Patient Tobacco Use Status: Never used Tobacco e-Cigarette/Vaping Use: Never Used Substance Use Type: Marijuana service: No Current occupational status: employed Cognitive needs: No Hearing needs: No Vision needs: Yes (uses glasses for driving) Female Reproductive History Menstrual Age of Menarche: 11 control method: progestin IUCD Total pregnancies: 5 Full term: 3 Date of last pap smear: 05/23/23 (negative) History of abnormal pap smear: No Physical Exam Vital Signs: Last Vital Signs BP 106/62 11/08/23 10:10 BMI result Body Mass Index 23.7 Other: Uterus cervix with Mirena strings extending about 2 cm off to patient's left. Patient does have redundant vaginal tissue from having been heavier in her life and having lost weight in the past. Mucousy discharge appears fairly within normal limits is a whitish yellowish tinge cultures taken. External Female Exam: normal external appearance Speculum Exam - Vagina: normal appearance of the vagina and normal vaginal discharge Speculum Exam - Cervix: normal appearance of the cervix Bimanual exam- vagina & uterus: normal bimanual exam, uterine size normal, consistency normal, uterine mobility normal, uterine shape normal and non-tender Bimanual Exam- Adnexa, other: normal adnexae, no masses and No adnexal tenderness Assessment & Plan Assessment & Plan (1) Presence of 52 mg levonorgestrel-releasing intrauterine device (IUD): Comment: New Mirena exchanged/ inserted 09/28/2023 Code(s): Z97.5 - Presence of (intrauterine) contraceptive device (2) Vaginal discharge: Comment: Testing done teaching done about prevalence of Gardnerella and Rekha as normal esme discussed perspiration and routine hygiene/water is okay. Code(s): N89.8 - Other specified noninflammatory disorders of vagina Plan Reviewed that her IUD is in position patient has normal exam with her thin frame and lack of current adipose it was very easy to feel her anteverted uterus and she could feel it as well. Discussed the normal that vaginal esme and that it is very common to have some bacteria if she chooses to treated if Gardnerella is found that is a totally fine choice equally she could not do anything. Discussed all of the other scenarios that could contribute to increased perspiration reviewed changes in bed clothing as well it turns out her did by her new blank it which was polyester and that could definitely contribute to the waking up feeling sweaty in the morning her body temperature often does rise in the morning. She inquired about vinegar and water douches that her suggested and discussed that they usually are not necessary we do not recommend the but there really is not anything wrong with rinsing with water in it when she showers plain water is fine. douching isn't recommended. Orders: Orders Bacterial Vaginosis Panel Today Z20.2 - Contact with and (suspected) exposure to infections with a predominantly sexual mode of transmission CT NG by PCR Today Z01.419 - Encounter for gynecological examination (general) (routine) without abnormal findings Coding Level of Care Code Est Pt Level 3 (74222) Diagnoses Presence of 52 mg levonorgestrel-releasing intrauterine device (IUD) Z97.5 Vaginal discharge N89.8
[2023-11-08 10:10] VITALS: BP 106/62; BMI 23.7
== END 2023-11-08 12:01 | disposition home or self-care (01) ==
LOC: HO.HWSM 09:56
PROVIDERS: PCP Internal Medicine; Visit Provider Advanced Practice Midwife
DX: Z97.5 Presence of (intrauterine) contraceptive device (principal); N89.8 Other specified noninflammatory disorders of vagina
CPT/HCPCS: 99213

== ENCOUNTER 2023-11-08 09:56 | Outpatient (REF) | payer OTHER, SELFPAY ==
[2023-11-09 13:11] LABS: BV Int Neg Control Negative (Negative); BV Int Pos Control Positive (Positive)
[2023-11-09 13:18] LABS: CT PCR NOT DETECTED (Not Detect.); NG PCR NOT DETECTED (Not Detect.)
== END 2023-11-08 09:57 | disposition home or self-care (01) ==
LOC: HO.LAB 09:56
PROVIDERS: PCP Internal Medicine; Visit Provider Advanced Practice Midwife
DX: Z01.419 Encounter for gynecological examination (general) (routine) without abnormal findings (principal); N89.8 Other specified noninflammatory disorders of vagina; Z20.2 Contact with and (suspected) exposure to infections with a predominantly sexual mode of transmission; Z97.5 Presence of (intrauterine) contraceptive device
CPT/HCPCS: 0353U; 87480; 87510; 87660; 99212

== ENCOUNTER 2023-12-14 09:31 | Emergency (ER) | payer OTHER, SELFPAY ==
[2023-12-14 09:35] VITALS: BP 108/50; PULSE 75; RESP 18; TEMP 37; O2SAT 98; BMI 23.7
--- NOTE | 2023-12-14 10:33 | ED_ITS ---
HPI - Eye Problem General Chief complaint: Eye Problems Stated complaint: R eye pain Time Seen by Provider: 12/14/23 09:52 Source: patient Mode of arrival: ambulatory Limitations: no limitations History of Present Illness HPI Narrative: 38 year old female with pmhx significant for anemia presents to the ED today for evaluation of right eye pain/crusting on waking this morning. Does not recall getting anything in the eye. No FB sensation. Reports excessive tearing from the eye. No known sick contacts. Does not wear corrective lenses. Denies fever, chills, n/v, vision changes, rashes. Related Data Home Medications ?Medication ?Instructions ?Recorded ?Confirmed levonorgestrel 21 mcg/24 hours (8 intrauterine 05/22/23 11/08/23 yrs) 52 mg intrauterine device (Mirena) Previous Rx's ?Medication ?Instructions ?Recorded benzonatate 100 mg capsule 100 mg PO BID PRN cough #20 caps 08/15/23 erythromycin 5 mg/gram (0.5 %) eye 1 appl ophthalmic-Right TID 7 days 12/14/23 ointment #3.5 grams Allergies Allergy/AdvReac Type Severity Reaction Status Date / Time Seasonal Allergies Allergy Mild congestion Verified 12/14/23 09:36 Review of Systems Review of Systems: Constitutional: No fever, chills, fatigue, night sweats, weight changes ENT/Mouth: No ear pain, hearing loss, nasal congestion, sinus pain, rhinorrhea, sore throat Eyes: No swelling, redness, vision changes, +pain, +crusting Cardio: No chest pain, palpitations, KEITH, orthopnea, peripheral edema Pulm: No SOB, cough, sputum, wheezing, dyspnea, hemoptysis GI: No nausea, vomiting, hematemesis, abdominal pain, diarrhea, constipation, hematochezia, melena : No irregular bleeding, dysuria, frequency, urgency, hesitancy, hematuria, flank pain, urinary flow changes, urinary incontinence or retention MSK: No back pain, neck pain, joint pain, myalgias Skin: No lesions, rashes Neuro: No weakness, numbness, paresthesias, LOC, dizziness, headache Psych: No anxiety/panic, depression, SI/HI, AH/VH All other systems reviewed and are negative. [facility] Past Medical History Attestation statement: The following information was validated with the patient. Source: old records reviewed and nursing notes reviewed Medical History Transaminitis Cholecystitis Anemia Surgical History Hx of cosmetic surgery Hx of cholecystectomy H/O gastric bypass Family History Family History Father No problems noted. Mother No problems noted. Maternal Aunt Breast cancer Social History Social History Housing: House Alcohol intake: current Alcohol intake frequency: holidays/special occasions only Alcohol type: beer, wine and hard liquor Patient Tobacco Use Status: Never used Tobacco e-Cigarette/Vaping Use: Never Used Substance Use Type: Marijuana Advance Directives: No Advance Directives Information Provided: No Do you have a plan to hurt others: No Plan service: No Current occupational status: employed Cognitive needs: No Hearing needs: No Vision needs: Yes (uses glasses for driving) Physical Exam Vital Signs: Vital Signs: Last Vital Signs Temp 97.7 F 12/14/23 11:15 Pulse 75 12/14/23 11:15 Resp 16 12/14/23 11:15 BP 114/69 12/14/23 11:15 Pulse Ox 99 12/14/23 11:15 O2 Del Method Room Air 12/14/23 11:15 BMI result Body Mass Index 23.7 vital signs stable Const: General: cooperative, healthy appearing, comfortable and no acute distress Orientation/consciousness: patient oriented x3 Limitations: no limitations HEENT: Other: + No pain on manipulation of left pinna or tragus. No mastoid tenderness. Left EAC without erythema, edema or discharge. TM intact without erythema, effusion, or bulging. + No pain on manipulation of right pinna or tragus. No mastoid tenderness. Right EAC without erythema, edema or discharge. TM intact without erythema, effusion, or bulging. Head: Yes normal to inspection, Yes No palpable skull fracture present, Yes normocephalic and Yes atraumatic Eyes: Other: + injected conjunctiva to right eye with excessive tearing. no enophthalmus or exopthamus. no obvious FB or abrasion. no periorbital swelling or skin changes. IOP OD 15, OS 16. On fluorescein stain, no reuptake to indicate FB or abrasion. Pupils: Equal, round and reactive pupils present EOM: EOMs intact bilaterally Neck: Neck: Yes normal visual inspection, Yes full ROM and Yes no lymphadenopathy Resp: Effort & Inspection: normal respiratory effort and able to speak in complete sentences Cardio: Rate: regular rate Rhythm: regular rhythm Skin: General skin exam: no rashes or lesions noted Neuro: General: patient oriented x3 Cranial nerves: Yes Equal, round and reactive pupils present Course Course Course Narrative: 1125-- exam findings consistent with bacterial conjunctivitis. erythromycin ointment sent to pharmacy. IOP wnl > no concern for glaucoma. eoms intact w/o pain > no concern for orbital celluitis. Patient has remained stable throughout ED visit today. Discussed worrisome signs and symptoms and when to return to the ED. All questions answered at this time. Patient is agreeable with disposition and stable for discharge. Medications Administered Discontinued Medications Generic Name Dose Route Start Last Admin Trade Name Jacque PRN Reason Stop Dose Admin Fluorescein Sodium 1 strip 12/14/23 10:35 12/14/23 10:59 Fluorescein Sodium Strip EYE-RIGHT 12/14/23 10:36 1 strip ONCE ONE Administration Tetracaine HCl 1 drop 12/14/23 10:35 12/14/23 10:59 Tetracaine Hcl/Pf 0.5% Oph Diana 4 Ml Drops EYE-RIGHT 12/14/23 10:36 1 drop ONCE ONE Administration Medical Decision Making Medical Decision Making [facility] Narrative: 38 year old female with pmhx significant for anemia presents to the ED today for evaluation of right eye pain/crusting on waking this morning. Vital signs stable. nontoxic appearing and in NAD. On exam, injected conjunctiva to right eye with excessive tearing. no enophthalmus or exopthamus. no obvious FB or abrasion. no periorbital swelling or skin changes. IOP OD 15, OS 16. On fluorescein stain, no reuptake to indicate FB or abrasion. PERRLA. EOMS intact w/o pain. Differential diagnosis includes conjunctivitis, corneal abrasion. Unlikely corneal fb, ulcer, glaucoma, periorbital or orbital cellulitis. plan for IOP, fluorescein stain/tetracaine, and re-eval. Differential Diagnosis Differential Diagnoses: The differential diagnosis associated with the presentation includes as above. Admission/Observation not indicated. External Record Review External record reviewed: Inpatient record Prescription Management I considered prescription management with: Antibiotic (erythromycin) Social Determinants Patient?s care significantly limited by Social Determinants of Health including: Other Social Determinant of Health Critical Care Time Critical Care Time Critical Care Time: No Discharge Plan Discharge Clinical Impression: Conjunctivitis Patient Disposition: Home, Self-Care Instructions: Conjunctivitis (ED) Additional Instructions: You have an eye infection termed conjunctivitis. Erythromycin antibiotic ointment has been sent to your pharmacy. Apply this to the affected eye 3 times daily. Follow-up with your eye doctor. Follow-up with your PCP as needed. Return with new or worsening symptoms. In the case of an emergency call 911. Prescriptions: New erythromycin 5 mg/gram (0.5 %) ointment 1 appl ophthalmic-Right TID 7 Days Qty: 3.5 0RF No Action benzonatate 100 mg capsule 100 mg PO BID PRN (Reason: cough) Qty: 20 0RF Mirena 21 mcg/24 hours (8 yrs) 52 mg intrauterine device intrauterine [place]: [facility] [facility] [place] [facility]Provider Group] [facility] Group] Stand Alone Forms: Work/School Release Interventions: ED Discharge Assessment Last Done: 12/14/23 11:15 Discharge Date/Time: 12/14/23 11:16 Print Language: Cymro
[2023-12-14] MEDS: Fluorescein Sodium STRIP 1 STRIP EYE-RIGHT (10:59)
[2023-12-14] MEDS: Tetracaine HCl/PF 0.5% Oph Sol 4 ML DROPS 1 DROP EYE-RIGHT (10:59)
[2023-12-14 11:15] VITALS: BP 114/69; PULSE 75; RESP 16; TEMP 36.5; O2SAT 99
== END 2023-12-14 11:16 | disposition home or self-care (01) ==
PROVIDERS: Emergency Provider Emergency Medicine; PCP Internal Medicine
DX: H10.9 Unspecified conjunctivitis (principal); H57.11 Ocular pain, right eye; D64.9 Anemia, unspecified
CPT/HCPCS: 99282; 99283

== ENCOUNTER 2024-08-22 10:48 | Emergency (ER) | payer OTHER, SELFPAY ==
[2024-08-22 12:11] VITALS: BP 116/62; PULSE 95; RESP 16; TEMP 37.3; O2SAT 99; BMI 22.3
--- NOTE | 2024-08-22 12:12 | ED_ITS ---
HPI - General Adult General Chief complaint: Nausea/Vomiting/Diarrhea Stated complaint: n/v/d Source: patient, RN notes reviewed and old records reviewed Mode of arrival: ambulatory Limitations: no limitations History of Present Illness ED Provider: Coty MURRAY narrative: Patient is a 38-year-old female presenting with complaint of nausea, vomiting and diarrhea since 3am. Children in the home recently sick with same symptoms. No fever. No hematemesis, hematochezia. Has not been able to tolerate fluids. MD complaint: vomiting and diarrhea Onset (ago): hour(s) Treatments prior to arrival: none Related Data Home Medications ?Medication ?Instructions ?Recorded ?Confirmed levonorgestrel 21 mcg/24 hr (up to intrauterine 05/22/23 11/08/23 8 years) 52 mg intrauterine device (Mirena) Previous Rx's ?Medication ?Instructions ?Recorded benzonatate 100 mg capsule 100 mg PO BID PRN cough #20 caps 08/15/23 erythromycin 5 mg/gram (0.5 %) eye 1 appl ophthalmic-Right TID 7 days 12/14/23 ointment #3.5 grams ondansetron 4 mg disintegrating 4 mg PO Q8H PRN nausea and 08/22/24 tablet vomiting #10 tabs Allergies Allergy/AdvReac Type Severity Reaction Status Date / Time Seasonal Allergies Allergy Mild congestion Verified 08/22/24 12:15 Review of Systems 2 Review of Systems: As per HPI. Yes all other systems are reviewed and are negative Constitutional: Constitutional: Reports as per HPI [facility] Past Medical History Medical History Transaminitis Cholecystitis Anemia Surgical History Hx of cosmetic surgery Hx of cholecystectomy H/O gastric bypass Family History Family History Father No problems noted. Mother No problems noted. Maternal Aunt Breast cancer Social History Social History Housing: House Alcohol intake: current Alcohol intake frequency: holidays/special occasions only Alcohol type: beer, wine and hard liquor Patient Tobacco Use Status: Never used Tobacco e-Cigarette/Vaping Use: Never Used Substance Use Type: Marijuana Do you have a plan to hurt others: No Plan service: No Current occupational status: employed Cognitive needs: No Hearing needs: No Vision needs: Yes (uses glasses for driving) Physical Exam ED Vital Signs: Vital Signs - 24 hr 08/22/24 12:11 Temperature 99.1 F Pulse Rate 95 Respiratory Rate 16 Blood Pressure 116/62 Pulse Oximetry 99 Oxygen Delivery Method Room Air BMI result Body Mass Index 22.3 Vital signs have been reviewed and appear to be correct. Blood pressure normal. Heart rate normal. Respiratory rate normal. Temperature normal. Oxygen saturation normal. Const General: cooperative, healthy appearing and no acute distress Orientation/consciousness: oriented to person, oriented to place, oriented to time and patient oriented x3 Limitations: no limitations HENMT Head: Yes normocephalic and Yes atraumatic Ears: external ears normal General nose exam: Normal external nose present Face and sinus: Yes face symmetric Mouth: oropharynx normal and moist mucous membranes Throat: Yes uvula midline Eyes Pupils: Equal, round and reactive pupils present Neck Neck: Yes normal visual inspection and Yes supple Resp Effort & Inspection: normal respiratory effort and able to speak in complete sentences Auscultation: clear to auscultation bilaterally Cardio Rate: regular rate Rhythm: regular rhythm Heart sounds: S1 normal heart sound present and S2 normal heart sound present GI Palpation (GI): Soft to palpation and nontender Auscultation: normoactive bowel sounds General: Yes no CVA tenderness Back/Spine/Pelvis Back: no CVA tenderness Skin General skin exam: elasticity normal and turgor normal Neuro General: oriented to person, oriented to place, oriented to time, patient oriented x3, moves all extremities, no focal motor deficits and CN's II-XI intact bilaterally Cranial nerves: Yes Equal, round and reactive pupils present Cognition (Neuro): normal cognition Extrem General: Yes full ROM, Yes no pedal edema and Yes no calf tenderness Psych Mental Status: mental status grossly normal Affect: normal affect Thought process: Normal thought process present Course Course Course Narrative: This is a rapid medical exam performed by Rossi Ansari NP: Additional HPI, ROS, PE not included below will be deferred to primary provider. Patient is a 38-year-old female presenting with complaint of nausea, vomiting and diarrhea since 3am. Children in the home recently sick with same symptoms. No fever. No hematemesis, hematochezia. Plan: viral serology, labs Medications Administered Discontinued Medications Generic Name Dose Route Start Last Admin Trade Name Jacque PRN Reason Stop Dose Admin Ondansetron HCl 4 mg 08/22/24 12:15 08/22/24 12:17 Ondansetron Odt 4 Mg Tab.Maycol CORNELIUS 08/22/24 12:16 4 mg ONCE ONE Administration Medical Decision Making Medical Decision Making [facility] Narrative: Patient is a 38-year-old female presenting with complaint of nausea, vomiting and diarrhea since 3am. On exam patient is awake, A+Ox3, VS WNL, afebrile, normal neurological exam without focal deficits, physical exam findings as above. Given reported symptoms and physical exam findings, initial differential includes but is not limited to viral illness, COVID, flu, electrolyte abnormality, gastroenteritis. Labs notable for no leukocytosis, mildly elevated transaminases which appear chronic. Viral serology negative. Patient updated on results and all questions answered. Discussed that symptoms are likely due to norovirus, advised fluids, rest, will send prescription for Zofran. Follow up with PCP as needed. Return precautions discussed. Patient verbalized understanding of and agreement with plan. Differential Diagnosis Differential Diagnoses: The differential diagnosis associated with the presentation includes as per [facility] Lab Data [facility] Lab Attestation statement: I reviewed the patient's lab results. as per [facility] 08/22/24 12:26 08/22/24 12:26 Labs: Lab Results 08/22/24 Range/Units 12:26 WBC 10.0 (4.8-10.8) X10*3/uL RBC 4.80 (4.20-5.50) X10*6/uL Hgb 15.6 (12.0-16.0) g/dl Hct 44.6 (37.0-47.0) % MCV 92.9 (80.0-98.0) fL MCH 32.5 (27.0-33.0) pg MCHC 35.0 (31.0-35.0) g/dl RDW 11.5 (11.0-16.0) % Plt Count 266 (160-400) X10*3/uL MPV 9.4 (9.4-12.3) fL Immature Gran % (Auto) 0.5 H (0.0-0.4) % Neut % (Auto) 94.3 H (45-73) % Lymph % (Auto) 2.6 L (20-40) % [place] % (Auto) 2.4 (2-11) % Eos % (Auto) 0.1 (0-4) % Baso % (Auto) 0.1 (0-2) % Lymph # (Auto) 0.3 L (1.2-4.9) X10*3/uL [place] # (Auto) 0.2 (0.1-1.2) X10*3/uL Eos # (Auto) 0.0 (0.0-0.4) X10*3/uL Baso # (Auto) 0.0 (0.0-0.2) X10*3/uL Abs Immat Gran (auto) 0.05 H (0.00-0.03) X10*3/uL Absolute Neuts (auto) 9.5 H (2.0-8.3) x10*3/uL Absolute Nucleated RBC 0.000 (0.0-0.012) X10*3/uL Nucleated RBC % (auto) 0.0 (0.0-0.2) /100WBC Smear Tech's Comments VERIFIED Sodium 139 (135-145) mmol/L Potassium 4.2 (3.3-5.1) mmol/L Chloride 104 (96-108) mmol/L Carbon Dioxide 25 (22-29) mmol/L Anion Gap 14 (12-20) BUN 20 H (9-16) mg/dL Creatinine 0.76 (0.5-1.4) mg/dL Estim Creat Clear Calc 83.0 Estimated GFR > 60 Random Glucose 131 H (60-115) mg/dL Calcium 9.7 (8.4-10.2) mg/dL Total Bilirubin 2.4 H (0.0-1.0) mg/dL AST 35 H (5-31) U/L ALT 34 H (0-31) U/L Total Protein 8.4 H (6.5-8.0) g/dL Albumin 4.8 (3.5-5.0) g/dL Beta HCG, Quant < 2 mIU/mL Influenza Type A (PCR) NEGATIVE (Negative) Influenza Type B (PCR) NEGATIVE (Negative) RSV RNA Qual (PCR) NEGATIVE (Negative) SARS-CoV-2 RNA (RT-PCR) NEGATIVE (Negative) External Record Review External record reviewed: Inpatient record, Office record and Outpatient record Prescription Management I considered prescription management with: Other Discharge Plan Discharge Clinical Impression: Gastroenteritis Patient Disposition: Home, Self-Care Instructions: Gastroenteritis (DC), Acute Nausea and Vomiting (ED), Acute Diarrhea (ED) Additional Instructions: You have been evaluated in the emergency department today for nausea, vomiting, and diarrhea. Your evaluation suggests that your symptoms are most likely due to a viral illness which will improve on it's own with rest and fluids. Remember to drink plenty of fluids at home. You are being prescribed ondansetron which you can use as per the prescription instructions for nausea. Please follow up with your primary care provider within two days. Return to the emergency department if you experience worsening or uncontrolled pain, inability to tolerate fluids by mouth, difficulty breathing, fevers 100.4? F or greater, recurrent vomiting, or any other concerning symptoms. Prescriptions: New ondansetron 4 mg tablet,disintegrating 4 mg PO Q8H PRN (Reason: nausea and vomiting) Qty: 10 0RF No Action benzonatate 100 mg capsule 100 mg PO BID PRN (Reason: cough) Qty: 20 0RF erythromycin 5 mg/gram (0.5 %) ointment 1 appl ophthalmic-Right TID 7 Days Qty: 3.5 0RF Mirena 21 mcg/24 hours (8 yrs) 52 mg intrauterine device intrauterine Stand Alone Forms: Work/School Release Print Language: Italian
[2024-08-22] MEDS: Ondansetron ODT 4 MG TAB.RAPDIS TRANSLINGU (12:17)
[2024-08-22 12:35] LABS: Basophils Percent Auto 0.1 % (0-2); Eosinophils Percent Auto 0.1 % (0-4); Hematocrit 44.6 % (37.0-47.0); Hemoglobin 15.6 g/dl (12.0-16.0); Imm Gran Abs Auto 0.05 X10*3/uL (0.00-0.03); Imm Gran Pct Auto 0.5 % (0.0-0.4); Lymphocytes Absolute Auto 0.3 X10*3/uL (1.2-4.9); Lymphocytes Percent Auto 2.6 % (20-40); MANUAL DIFF FLAG SCAN; Mean Corpuscular Hemoglobin 32.5 pg (27.0-33.0); Mean Corpuscular Volume 92.9 fL (80.0-98.0); Mean Platelet Volume 9.4 fL (9.4-12.3); Monocytes Absolute Auto 0.2 X10*3/uL (0.1-1.2); Monocytes Percent Auto 2.4 % (2-11); Neutrophils Absolute Auto 9.5 x10*3/uL (2.0-8.3); Neutrophils Percent Auto 94.3 % (45-73); Platelet Count 266 X10*3/uL (160-400); Red Cell Distribution Width 11.5 % (11.0-16.0); SCAN SMEAR FLAG 1
[2024-08-22 13:01] LABS: Albumin Level 4.8 g/dL (3.5-5.0); Anion Gap 14 (12-20); Aspartate Amino Transferase 35 U/L (5-31); Bilirubin Total 2.4 mg/dL (0.0-1.0); Blood Urea Nitrogen 20 mg/dL (9-16); Calcium 9.7 mg/dL (8.4-10.2); Carbon Dioxide 25 mmol/L (22-29); Chloride 104 mmol/L (96-108); Estimated Glomerular Filt Rate > 60; Glucose Random 131 mg/dL (60-115); Potassium 4.2 mmol/L (3.3-5.1); Sodium 139 mmol/L (135-145); Total Protein 8.4 g/dL (6.5-8.0)
[2024-08-22 13:08] LABS: HCG Quantitative < 2 mIU/mL
[2024-08-22 13:10] LABS: Influenza A PCR NEGATIVE (Negative); Influenza B PCR NEGATIVE (Negative); Resp Syncy Virus RNA Qual PCR NEGATIVE (Negative); SARS COV2 PCR INHOUSE NEGATIVE (Negative)
[2024-08-22 13:12] LABS: SLIDE REVIEW VERIFIED
[2024-08-22 13:14] LABS: Alanine Aminotransferase 34 U/L (0-31)
[2024-08-22 14:00] VITALS: BP 127/70; PULSE 88; RESP 16; TEMP 36.9; O2SAT 97
[2024-08-22 14:02] VITALS: BP 127/70; PULSE 88; RESP 16; TEMP 36.9; O2SAT 97
[2024-08-22 14:10] LABS: Alkaline Phosphatase 83 U/L (39-117)
== END 2024-08-22 14:31 | disposition home or self-care (01) ==
PROVIDERS: Registered Nurse Emergency; Emergency Provider Emergency Medicine; PCP Internal Medicine
DX: K52.9 Noninfective gastroenteritis and colitis, unspecified (principal); R11.2 Nausea with vomiting, unspecified; Z03.818 Encounter for observation for suspected exposure to other biological agents ruled out; Z79.899 Other long term (current) drug therapy
CPT/HCPCS: 0241U; 36415; 80053; 84702; 85025; 99282; 99283

== ENCOUNTER 2024-12-14 08:31 | Emergency (ER) | payer OTHER, SELFPAY ==
[2024-12-14 08:36] VITALS: BP 98/54; PULSE 68; RESP 14; TEMP 37; O2SAT 96; BMI 23.7
[2024-12-14 08:53] LABS: IDNOW Serial# 55D5AD1C; Strep A Nucleic Acid Negative (Negative)
--- NOTE | 2024-12-14 09:11 | ED_ITS ---
HPI - URI/Sore Throat General Chief Complaint: Upper Respiratory Symptoms Stated Complaint: strept? Time Seen by Provider: 12/14/24 08:50 Source: patient Mode of arrival: ambulatory Limitations: no limitations History of Present Illness ED Provider: Makayla Lewis NP HPI Narrative: Patient is a 39-year-old female who presents emergency department for evaluation of sore throat with onset yesterday evening. She reports that just yesterday her son completed treatment for strep throat. She denies additional symptoms associated with this; such as fevers, chills, headache, dizziness, neck pain, neck stiffness, chest pain, shortness of breath, difficulty breathing, cough, nausea, vomiting, abdominal pain, numbness or tingling of the extremities, genitourinary symptoms. Related Data Home Medications ?Medication ?Instructions ?Recorded ?Confirmed levonorgestrel 21 mcg/24 hr (up to intrauterine 05/22/23 11/08/23 8 years) 52 mg intrauterine device (Mirena) Previous Rx's ?Medication ?Instructions ?Recorded benzonatate 100 mg capsule 100 mg PO BID PRN cough #20 caps 08/15/23 erythromycin 5 mg/gram (0.5 %) eye 1 appl ophthalmic-Right TID 7 days 12/14/23 ointment #3.5 grams ondansetron 4 mg disintegrating 4 mg PO Q8H PRN nausea and 08/22/24 tablet vomiting #10 tabs amoxicillin 500 mg capsule 500 mg PO BID #20 caps 12/14/24 Allergies Allergy/AdvReac Type Severity Reaction Status Date / Time Seasonal Allergies Allergy Mild congestion Verified 12/14/24 08:38 Review of Systems Review of Systems: Yes all other systems are reviewed and are negative PMFSH Past Medical History Attestation statement: The following information was validated with the patient. Source: old records reviewed Medical History Transaminitis Cholecystitis Anemia Surgical History Hx of cosmetic surgery Hx of cholecystectomy H/O gastric bypass Family History Family History Father No problems noted. Mother No problems noted. Maternal Aunt Breast cancer Social History Social History Housing: House Alcohol intake: current Alcohol intake frequency: holidays/special occasions only Alcohol type: beer, wine and hard liquor Patient Tobacco Use Status: Never used Tobacco e-Cigarette/Vaping Use: Never Used Substance Use Type: Marijuana service: No Current occupational status: employed Cognitive needs: No Hearing needs: No Vision needs: Yes (uses glasses for driving) Physical Exam Vital Signs: Vital Signs: Last Vital Signs Temp 98.6 F 12/14/24 08:36 Pulse 68 12/14/24 08:36 Resp 14 12/14/24 08:36 BP 98/54 L 12/14/24 08:36 Pulse Ox 96 12/14/24 08:36 O2 Del Method Room Air 12/14/24 08:36 BMI result Body Mass Index 23.7 Appearance: Alert.?Oriented to person, place and time. No acute distr ess.?Normal affect. Eyes: Pupils equal, round and reactive to light.? ENT: TM normal bilaterally. Pharynx is erythematous without tonsillar hypertrophy, has white pustular exudates to the posterior oropharynx. Uvula is midline. No trismus. No drooling.?? Neck: Normal inspection.? Neck supple.??No cervical adenopathy CVS: Heart sounds normal. Normal heart rate and rhythm.? Pulses normal.?? Respiratory: No respiratory distress.? Lung sounds clear to auscultation bilaterally?? Abdomen: Soft and non-tender. Normoactive bowel sounds. Skin: Skin warm and dry.? Normal skin color.? ? Extremities: No lower extremity edema.? Neuro: Moves all extremities spontaneously. Sensation intact bilaterally. No motor deficits. Ambulates with normal steady gait. Medical Decision Making Medical Decision Making MDM Narrative: Patient is a year old female who presents emergency department for evaluation of a sore throat with no attributing symptoms as per HPI onset of symptoms yesterday and has been exposed to her son who has just completed treatment for strep throat as of yesterday. Her group a strep testing is negative, however given her physical exam findings and close exposure I feel it best that she be treated with a course of amoxicillin at this time. Her examination is not consistent with [employer]. She denies concern for sexually transmitted infections of the oropharynx. she is overall Well-appearing, nontoxic, afebrile, no tachycardia or tachypnea/hypoxia. Speaking clear full sentences, ambulatory with steady gait. Discussed conservative treatment including rest, hydration, Tylenol/ibuprofen as needed for fever and body aches, saline nasal spray, humidifier, [id number] cold medication. Advised to follow-up with primary care provider as needed, discussed reasons to return back to the emergency department. All questions were answered. Patient discharged home in stable co ndition. Provided with a return to work/school note. Differential Diagnosis Differential Diagnoses: The differential diagnosis associated with the presentation includes ( See narrative above) Admission/Observation Consideration of admission/observation: Escalation of care including admi ssion/observation considered ( see narrative above) Lab Data MDM Lab Attestation statement: I reviewed the patient's lab results. ( see narrative above) Labs: Lab Results 12/14/24 Range/Units 08:41 S. pyogenes GrpA ADELITA Negative (Negative) External Record Review External record reviewed: Outpatient record Prescription Management I considered prescription management with: Pain Medication ( acetaminophen/ibuprofen) and Antibiotic Discharge Plan Discharge Clinical Impression: Pharyngitis Patient Disposition: Home, Self-Care Instructions: Pharyngitis (ED) Additional Instructions: Complete entire course of antibiotics as prescribed. Do not skip any doses or stop taking early even if you begin to feel better. Warm salt water gargles, sore throat lozenges/throat spray from the pharmacy may be helpful as well. You can take ibuprofen 200 mg, 3 tablets (600mg) every 6-8 hours as needed for pain, in addition to Tylenol 500 mg, 2 tablets (1,000mg) every 4-6 hours as needed for pain, but not to exceed 3 doses daily (3,000mg).? It is very important to use a back-up form of control, such as barrier condoms/abstinence, while on antibiotics and for one week after as they may be ineffective in preventing while on the antibiotics. While taking antibiotics, please include probiotics that can be found over the counter or yogurt in your diet. If symptoms of a yeast infection or diarrhea occur, please seek evaluation. Prescriptions: New amoxicillin 500 mg capsule 500 mg PO BID Qty: 20 0RF No Action benzonatate 100 mg capsule 100 mg PO BID PRN (Reason: cough) Qty: 20 0RF erythromycin 5 mg/gram (0.5 %) ointment 1 appl ophthalmic-Right TID 7 Days Qty: 3.5 0RF ondansetron 4 mg tablet,disintegrating 4 mg PO Q8H PRN (Reason: nausea and vomiting) Qty: 10 0RF Mirena 21 mcg/24 hours (8 yrs) 52 mg intrauterine device intrauterine Referrals: [place],[facility] [Primary Care Provider] - Stand Alone Forms: Work/School Release Print Language: Czech
[2024-12-14 09:43] VITALS: BP 125/66; PULSE 63; RESP 15; TEMP 36.9; O2SAT 100
[2024-12-14 09:49] VITALS: BP 125/66; PULSE 63; RESP 15; TEMP 36.9; O2SAT 100
== END 2024-12-14 09:52 | disposition home or self-care (01) ==
PROVIDERS: Emergency Provider Emergency Medicine; PCP Internal Medicine
DX: J02.9 Acute pharyngitis, unspecified (principal)
CPT/HCPCS: 87651; 99283